=== PATIENT | female | born 1985 | race Native Hawaiian/Other Pacific Islander ===

== ENCOUNTER 2016-07-21 15:42 | Emergency (ER) | payer OTHER ==
[~2016-07-21] VITALS: Ht 162.6 cm; Wt 59.0 kg
[2016-07-21 16:04] VITALS: BP 122/58; TEMP 98.3
== END 2016-07-21 18:09 | disposition home or self-care (01) ==
LOC: ED 15:42
DX: N76.0 Acute vaginitis (principal)
CPT/HCPCS: 81000; 87210; 99282

== ENCOUNTER 2016-08-21 15:20 | Emergency (ER) | payer OTHER ==
[~2016-08-21] VITALS: Ht 162.6 cm; Wt 61.2 kg
[2016-08-21 16:27] LABS: POTASSIUM 3.6 mmol/L (3.6-5.2); SODIUM 135 mmol/L (136-145)
[2016-08-21 16:28] LABS: PLATELET COUNT 143 K/uL (152-353)
[2016-08-21 17:07] VITALS: BP 116/72; TEMP 98.6
== END 2016-08-21 17:06 | disposition home or self-care (01) ==
LOC: ED 15:20
DX: J01.80 Other acute sinusitis (principal); Z33.1 Pregnant state, incidental
CPT/HCPCS: 36415; 80053; 81000; 81025; 85027; 99283

== ENCOUNTER 2016-09-05 13:34 | Emergency (ER) | payer OTHER ==
[~2016-09-05] VITALS: Ht 162.6 cm; Wt 59.0 kg
[2016-09-05 15:06] LABS: PLATELET COUNT 177 K/uL (152-353)
[2016-09-05 15:28] LABS: POTASSIUM 3.8 mmol/L (3.6-5.2); SODIUM 132 mmol/L (136-145)
[2016-09-05 15:54] VITALS: BP 112/68; TEMP 98
== END 2016-09-05 15:56 | disposition home or self-care (01) ==
LOC: ED 13:34
PROVIDERS: Emergency Medicine
DX: O21.0 Mild hyperemesis gravidarum (principal); Z3A.01 Less than 8 weeks gestation of pregnancy
CPT/HCPCS: 36415; 80053; 81000; 85027; 99283; J2550

== ENCOUNTER 2016-09-20 07:31 | Outpatient (CLI) | payer OTHER | END 2016-09-20 07:36 | disposition short-term general hospital (02) | LOC: AMB 07:31 | DX: M54.2 Cervicalgia (principal); M25.561 Pain in right knee; Z33.1 Pregnant state, incidental; V43.51XA Car driver injured in collision with sport utility vehicle in traffic accident, initial encounter; Y92.488 Other paved roadways as the place of occurrence of the external cause | CPT/HCPCS: A0425; A0429 ==

== ENCOUNTER 2016-09-20 07:36 | Emergency (ER) | payer OTHER ==
[~2016-09-20] VITALS: Ht 162.6 cm; Wt 57.2 kg
[2016-09-20 11:14] VITALS: BP 128/80; TEMP 98
== END 2016-09-20 11:14 | disposition home or self-care (01) ==
LOC: ED 07:36
DX: S13.8XXA Sprain of joints and ligaments of other parts of neck, initial encounter (principal); S16.1XXA Strain of muscle, fascia and tendon at neck level, initial encounter; Z33.1 Pregnant state, incidental; M54.5 Low back pain; M25.561 Pain in right knee; V43.52XA Car driver injured in collision with other type car in traffic accident, initial encounter; Y93.89 Activity, other specified; Y92.89 Other specified places as the place of occurrence of the external cause
CPT/HCPCS: 81000; 84702; 99284

== ENCOUNTER 2016-09-25 11:42 | Emergency (ER) | payer OTHER ==
[~2016-09-25] VITALS: Ht 162.6 cm; Wt 58.1 kg
[2016-09-25 16:16] VITALS: BP 125/89; TEMP 98
== END 2016-09-25 16:17 | disposition home or self-care (01) ==
LOC: ED 11:42
DX: M54.5 Low back pain (principal); Z33.1 Pregnant state, incidental
CPT/HCPCS: 81000; 99282

== ENCOUNTER 2016-10-17 10:07 | Emergency (ER) | payer OTHER ==
[~2016-10-17] VITALS: Ht 162.6 cm; Wt 58.1 kg
[2016-10-17 10:23] VITALS: BP 125/66; TEMP 98.4
[2016-10-17 10:33] LABS: PLATELET COUNT 145 K/uL (152-353)
== END 2016-10-17 12:15 | disposition home or self-care (01) ==
LOC: ED 10:07
DX: R10.31 Right lower quadrant pain (principal); Z33.1 Pregnant state, incidental; X50.0XXA Overexertion from strenuous movement or load, initial encounter; Y92.63 Factory as the place of occurrence of the external cause
CPT/HCPCS: 36415; 81000; 84702; 85027; 99284

== ENCOUNTER 2016-10-31 10:29 | Emergency (ER) | payer OTHER ==
[~2016-10-31] VITALS: Ht 162.6 cm; Wt 59.9 kg
[2016-10-31 10:42] VITALS: TEMP 97.8
[2016-10-31 11:17] LABS: PLATELET COUNT 160 K/uL (152-353)
[2016-10-31 11:39] VITALS: BP 112/68
== END 2016-10-31 11:40 | disposition home or self-care (01) ==
LOC: ED 10:29
DX: R10.2 Pelvic and perineal pain (principal); Z34.90 Encounter for supervision of normal pregnancy, unspecified, unspecified trimester
CPT/HCPCS: 36415; 81000; 85027; 99283